=== PATIENT | female | born 1990 | race American Indian/Alaskan Native ===

== ENCOUNTER 2019-01-03 11:10 | Emergency (ER) | payer MEDICAID, OTHER ==
--- NOTE | 2019-01-03 11:19 | Emergency Department Report ---
Blank Doc - Documentation Documentation: This is a [id number]aty[age] that presents with pelvic cramping and vaginal bleedi ng. Hawa is but is not sure how far. This initial assessment/diagnostic orders/clinical plan/treatment(s) is/are subject to change based on patient's health status, clinical progression and re- assessment by fellow clinical providers in the ED. Further treatment and workup at subsequent clinical providers discretion. Patient/guardians urged not to elope from the ED as their condition may be serious if not clinically assessed and managed. Initial orders include: 1- Patient sent to [facility] for further evaluation and treatment 2- labs 3- UA
[2019-01-03 11:46] LABS: Basophils % (Auto) 0.1 % (0.0-1.8); Eosinophils # (Auto) 0.1 K/mm3 (0.0-0.4); Eosinophils % (Auto) 0.8 % (0.0-4.3); Hematocrit 34.7 % (30.3-42.9); Hemoglobin 10.9 gm/dl (10.1-14.3); Lymphocytes # (Auto) 2.6 K/mm3 (1.2-5.4); Lymphocytes % (Auto) 22.4 % (13.4-35.0); Mean Corpuscular HGB Conc 32 % (30-34); Monocytes # (Auto) 0.6 K/mm3 (0.0-0.8); Monocytes % (Auto) 4.8 % (0.0-7.3); Platelet Count 379 K/mm3 (140-440); Red Blood Count 4.98 M/mm3 (3.65-5.03)
--- NOTE | 2019-01-03 11:50 | Emergency Department Report ---
HPI - General Chief Complaint: Vaginal Bleeding Time Seen by Provider: 01/03/19 11:17 - HPI HPI: PT TO ER WITH POS HOME PREG TEST 3 DAYS BUT WITH VAG BLEED TODAY. LMP 5-10 NO ABD PAIN. NO BACK PAIN. AMBULATORY AND NON TOXIC ED Past Medical Hx - Past Medical History Previous Medical History?: No - Surgical History Past Surgical History?: No - Family History Family history: no significant - Social History Smoking Status: Never Smoker Substance Use Type: None - Medications Home Medications: Home Medications Medication Instructions Recorded Confirmed Last Taken Type Ondansetron [Zofran Odt] 4 mg PO Q8HR PRN #10 tab.rapdis 01/03/19 Unknown Rx ED Review of Systems ROS: Stated complaint: ABDOMINAL CRAMPING/BLEEDING Other details as noted in HPI Comment: All other systems reviewed and negative Physical Exam - Physical Exam Vital Signs: Vital Signs 01/03/19 11:18 Temperature 98.7 F Pulse Rate 94 H Respiratory 18 Rate Blood Pressure 163/97 O2 Sat by Pulse 98 Oximetry Physical Exam: WDWN patient in NAD VS per RN flow sheet Alert and oriented to person, place and time. S1-S2. No S3 or S4. No systolic or diastolic murmur. No JVD. No pitting edema. Lungs clear to auscultation bilaterally anteriorly and posteriorly. Abdomen soft nontender bowel sounds X4 Moves all extremities well. Mood and affect appropriate. ED Course Vital Signs 01/03/19 11:18 Temperature 98.7 F Pulse Rate 94 H Respiratory 18 Rate Blood Pressure 163/97 O2 Sat by Pulse 98 Oximetry ED Medical Decision Making - Lab Data Result diagrams: 01/03/19 11:26 - Radiology Data Radiology results: report reviewed, image reviewed - Medical Decision Making OPOS Vital Signs 01/03/19 11:18 Temperature 98.7 F Pulse Rate 94 H Respiratory 18 Rate Blood Pressure 163/97 O2 Sat by Pulse 98 Oximetry Lab Results 01/03/19 01/03/19 01/03/19 Range/Units 11:26 11:26 11:26 WBC 11.7 H (4.5-11.0) K/mm3 RBC 4.98 (3.65-5.03) M/mm3 Hgb 10.9 (10.1-14.3) gm/dl Hct 34.7 (30.3-42.9) % MCV 70 L (79-97) fl MCH 22 L (28-32) pg MCHC 32 (30-34) % RDW 19.0 H (13.2-15.2) % Plt Count 379 (140-440) K/mm3 Lymph % (Auto) 22.4 (13.4-35.0) % [place] % (Auto) 4.8 (0.0-7.3) % Eos % (Auto) 0.8 (0.0-4.3) % Baso % (Auto) 0.1 (0.0-1.8) % Lymph # 2.6 (1.2-5.4) K/mm3 [place] # 0.6 (0.0-0.8) K/mm3 Eos # 0.1 (0.0-0.4) K/mm3 Baso # 0.0 (0.0-0.1) K/mm3 Seg Neutrophils % 71.9 H (40.0-70.0) % Seg Neutrophils # 8.4 H (1.8-7.7) K/mm3 HCG, Quant 461.2 H (0-4) mIU/mL Urine Color (Yellow) Urine Turbidity (Clear) Urine pH (5.0-7.0) Ur Specific [place] (1.003-1.030) Urine Protein (Negative) mg/dL Urine Glucose (UA) (Negative) mg/dL Urine Ketones (Negative) mg/dL Urine Blood (Negative) Urine Nitrite (Negative) Urine Bilirubin (Negative) Urine Urobilinogen (<2.0) mg/dL Ur Leukocyte Esterase (Negative) Urine WBC (Auto) (0.0-6.0) /HPF Urine RBC (Auto) (0.0-6.0) /HPF U Epithel Cells (Auto) (0-13.0) /HPF Urine Mucus /HPF Blood Type O POSITIVE Antibody Screen Negative 01/03/19 Range/Units Unknown WBC (4.5-11.0) K/mm3 RBC (3.65-5.03) M/mm3 Hgb (10.1-14.3) gm/dl Hct (30.3-42.9) % MCV (79-97) fl MCH (28-32) pg MCHC (30-34) % RDW (13.2-15.2) % Plt Count (140-440) K/mm3 Lymph % (Auto) (13.4-35.0) % [place] % (Auto) (0.0-7.3) % Eos % (Auto) (0.0-4.3) % Baso % (Auto) (0.0-1.8) % Lymph # (1.2-5.4) K/mm3 [place] # (0.0-0.8) K/mm3 Eos # (0.0-0.4) K/mm3 Baso # (0.0-0.1) K/mm3 Seg Neutrophils % (40.0-70.0) % Seg Neutrophils # (1.8-7.7) K/mm3 HCG, Quant (0-4) mIU/mL Urine Color Yellow (Yellow) Urine Turbidity Cloudy (Clear) Urine pH 6.0 (5.0-7.0) Ur Specific [place] 1.017 (1.003-1.030) Urine Protein <15 mg/dl (Negative) mg/dL Urine Glucose (UA) Neg (Negative) mg/dL Urine Ketones Neg (Negative) mg/dL Urine Blood Lg (Negative) Urine Nitrite Neg (Negative) Urine Bilirubin Neg (Negative) Urine Urobilinogen < 2.0 (<2.0) mg/dL Ur Leukocyte Esterase Tr (Negative) Urine WBC (Auto) 7.0 H (0.0-6.0) /HPF Urine RBC (Auto) 2.0 (0.0-6.0) /HPF U Epithel Cells (Auto) 47.0 H (0-13.0) /HPF Urine Mucus 1+ /HPF Blood Type Antibody Screen LABS NOTED US NOTED URINE NOTED O POS BLOOD PT EDUCATED ON MEANING OF THE TESTS TODAY. SHE WILL SEE OBGYN IN 48 HOURS FOR REPEAT BETA QUANT. AMBULATORY AND WITHOUT PAIN ON DC. SHE HAS BEEN INSTRUCTED TO MONITOR HER BLOOD PRESSURE. IT WAS ELEVATED AFTER HAVING TO WAIT HOURS FOR HER ULTRASOUND TO BE DONE AND READ. NO HX OF THE SAME. Critical care attestation.: If time is entered above; I have spent that time in minutes in the direct care of this critically ill patient, excluding procedure time. ED Disposition Clinical Impression: , Threatened , Morbid obesity, Elevated blood pressure reading Disposition: DC TO HOME OR SELFCARE Is pt being admited?: No Does the pt Need Aspirin: No Condition: Stable Instructions: Threatened Miscarriage (ED) Additional Instructions: DIET TOLERATED TAKE A DAILY OVER THE COUNTER MULTIVITAMIN FOLLOW UP OBGYN CANDE ACTIVITY TOLERATED MOTRIN OR TYLENOL FOR PAIN OR FEVER RETURN TO THE ER FOR WORSENING SYMPTOMS NOT RELIEVED BY YOUR MEDICATIONS. Prescriptions: Ondansetron [Zofran Odt] 4 mg PO Q8HR PRN #10 tab.rapdis PRN Reason: Vomiting Referrals: LAPEER MARKMISTHEBES MD [facility] [Primary Care Provider] - 3-5 Days MERCEDES RITCHIE MD [Staff Physician] - 3-5 Days Forms: Work/School Release Form(ED) Time of Disposition: 15:20
[2019-01-03 11:52] LABS: Mean Corpuscular Volume 70 fl (79-97)
[2019-01-03 12:17] LABS: Bilirubin,Urine NEG (Negative); Blood,Urine LG (Negative); Color,Urine Yellow (Yellow); Mucus,Urine 1+ /HPF; Protein,Urine <15 mg/dL mg/dL (Negative); Urobilinogen,Urine < 2.0 mg/dL (<2.0)
[2019-01-03 15:59] VITALS: BP 170/105
--- NOTE | 2019-01-03 16:00 | Ultrasound Report ---
PROCEDURE: US OB <= 14 WEEKS FETUS TECHNIQUE: Ultrasound of the pelvis using transabdominal and transvaginal imaging HISTORY: vaginal bleeding and pelvic pain . LMP 11/29/2018 with estimated age 5 weeks 0 days and EDC COMPARISONS: None . FINDINGS: Uterus: Uterus is enlarged in size and normal and homogeneous in echogenicity without focal fibroid formation. The uterus measures 12.4 x 4.7 x 8.3 cm in size. Endometrial stripe: Abnormal and increased in thickness measuring 23.7 mm. Ovaries: Both ovaries appear normal in size and echogenicity with normal blood flow bilaterally. Th e right ovary measures 4.1 x 2.3 x 3.6 cm and the left ovary measures 3.6 x 1.5 x 3.2 cm in size. Th ere is a complex avascular cyst in the right ovary measuring 1.8 cm. Other: There is no evidence for solid adnexal mass seen. There is a small amount of free fluid in th e cul-de-sac which is nonspecific. IMPRESSION: 1. No evidence for intrauterine or extrauterine identified 2. Endometrium is abnormally thickened 3. Complex cyst in the right ovary This document is electronically signed by Leeann Rogers MD., January 03 2019 03:58:06 PM ET
== END 2019-01-03 16:10 | disposition home or self-care (01) ==
LOC: ED 11:10
DX: O20.0 Threatened abortion (principal); O99.211 Obesity complicating pregnancy, first trimester; E66.01 Morbid (severe) obesity due to excess calories; R03.0 Elevated blood-pressure reading, without diagnosis of hypertension; Z3A.01 Less than 8 weeks gestation of pregnancy
CPT/HCPCS: 36415; 76801; 76817; 81001; 84702; 85025; 86850; 86900; 86901

== ENCOUNTER 2019-01-09 20:21 | Emergency (ER) | payer MEDICAID, OTHER ==
--- NOTE | 2019-01-09 20:39 | Event Note ---
ED Screening Note ED Screening Note: HERE 3 DAYS AGO FOR SAME REPEAT HCG This initial assessment/diagnostic orders/clinical plan/treatment(s) is/are subject to change based on patients health status, clinical progression and re- assessment by fellow clinical providers in the ED. Further treatment and workup at subsequent clinical providers discretion. Patient/guardian urged not to elope from the ED as their condition may be serious if not clinically assessed and managed. Initial orders include:
--- NOTE | 2019-01-09 21:20 | Emergency Department Report ---
ED Recheck HPI - General Chief Complaint: Abdominal Pain Stated Complaint: 6WKS /SPOTTING/ABDOMINAL PAIN Source: patient Mode of arrival: Ambulatory Limitations: No Limitations - History of Present Illness Initial Comments: Here for follow up HCG. See previous note. Complaint: other - Related Data Previous Rx's Medication Instructions Recorded Last Taken Type Ondansetron [Zofran Odt] 4 mg PO Q8HR PRN #10 tab.rapdis 01/03/19 Unknown Rx Allergies Allergy/AdvReac Type Severity Reaction Status Date / Time No Known Allergies Allergy Unverified 01/03/19 11:11 ED Review of Systems ROS: Stated complaint: 6WKS /SPOTTING/ABDOMINAL PAIN Other details as noted in HPI Comment: All other systems reviewed and negative ED Past Medical Hx - Past Medical History Previous Medical History?: No - Surgical History Past Surgical History?: No - Social History Smoking Status: Never Smoker Substance Use Type: None - Medications Home Medications: Home Medications Medication Instructions Recorded Confirmed Last Taken Type Ondansetron [Zofran Odt] 4 mg PO Q8HR PRN #10 tab.rapdis 01/03/19 Unknown Rx ED Physical Exam - General Limitations: No Limitations General appearance: alert - Head Head exam: Present: normocephalic - Eye Eye exam: Present: normal appearance - Respiratory Respiratory exam: Present: normal lung sounds bilaterally - Cardiovascular Cardiovascular Exam: Present: regular rate - GI/Abdominal GI/Abdominal exam: Present: soft, normal bowel sounds. Absent: distended, tenderness, guarding, rebound, rigid, diminished bowel sounds ED Course Vital Signs 01/09/19 01/09/19 21:37 22:22 Temperature 99.1 F Pulse Rate 95 H 89 Respiratory 16 18 Rate Blood Pressure 159/102 O2 Sat by Pulse 98 98 Oximetry ED Recheck MDM - Core Measures Measure Exclusions: not indicated - Medical Decision Making hcg trend- not doubling discussed with pt will dc her home with dc plan of care including obgyn follow up rh pos no ectopic on us vss nad BP 130/80 when taken by provider ambulatory Labs 01/09/19 20:44 HCG, Quant 612.3 H Vital Signs 01/09/19 01/09/19 21:37 22:22 Temperature 99.1 F Pulse Rate 95 H 89 Respiratory 16 18 Rate Blood Pressure 159/102 O2 Sat by Pulse 98 98 Oximetry Critical care attestation.: If time is entered above; I have spent that time in minutes in the direct care of this critically ill patient, excluding procedure time. ED Disposition Clinical Impression: Threatened Disposition: DC-01 TO HOME OR SELFCARE Is pt being admited?: No Does the pt Need Aspirin: No Condition: Stable Instructions: Spontaneous Miscarriage (ED) Additional Instructions: nothing in vagina diet as tolerated tylenol for pain follow up with obgyn as we discussed Referrals: MERCEDES RITCHIE MD [Staff Physician] - 3-5 Days Forms: Work/School Release Form(ED) Time of Disposition: 21:33
[2019-01-09 21:37] VITALS: BP 159/102
== END 2019-01-09 22:00 | disposition home or self-care (01) ==
LOC: ED 20:21
DX: O20.0 Threatened abortion (principal); Z3A.01 Less than 8 weeks gestation of pregnancy; Z79.899 Other long term (current) drug therapy
CPT/HCPCS: 36415; 84702; 99283